=== PATIENT | female | born 1965 | race Caucasian/White ===

== ENCOUNTER → 2017-05-30 | Outpatient (CLI) | payer BC, OTHER | LOC: LAB 08:12 | DX: Z00.00 Encounter for general adult medical examination without abnormal findings (principal); Z12.11 Encounter for screening for malignant neoplasm of colon ==

== ENCOUNTER → 2017-06-06 | Outpatient (CLI) | payer BC, OTHER | LOC: LAB 07:12 | DX: Z00.00 Encounter for general adult medical examination without abnormal findings (principal); Z12.11 Encounter for screening for malignant neoplasm of colon ==

== ENCOUNTER → 2017-08-14 | Outpatient (CLI) | payer BC, OTHER | LOC: LAB 19:10 | DX: R09.89 Other specified symptoms and signs involving the circulatory and respiratory systems (principal) ==